=== PATIENT | female | born 1940 | race Caucasian/White ===

== ENCOUNTER 2016-11-21 07:10 | Day surgery (SDC) | payer OTHER, MEDICARE ==
[~2016-11-21] VITALS: Ht 170.2 cm; Wt 86.0 kg
[~2016-11-21 07:10] MED LIST: 0.9% Sodium Chloride 1,000 ML IV SCH; MELO-259 PO; Sodium Chloride LOK Flush 10 mL Syringe IV PRN; VERA240C PO; fentaNYL-PF 50 mCg/mL 2 mL Inj IVPUSH PRN
[2016-11-21 07:31] VITALS: BP 146/89; PULSE 83; RESP 14; O2SAT 96
[2016-11-21 08:21] VITALS: BP 134/76; PULSE 72; RESP 13; O2SAT 93
[2016-11-21 08:31] VITALS: BP 133/70; PULSE 63; O2SAT 93
[2016-11-21 08:41] VITALS: BP 164/89; PULSE 67; RESP 16; O2SAT 97
--- NOTE | 2016-11-21 10:54 | ENDO ---
[address] [address] ENDOSCOPY PROCEDURE PATIENT: MYRIAM QUINTERO : 1940 MR#: [id number] ADMIT: 11/21/2016 JOB ID: [id number] DATE: 11/21/2016 PROCEDURE: Colonoscopy. INDICATION: Screening. Patient's ASA classification is 2. Mallampati score is 2. MEDICATIONS: Versed 5 mg and fentanyl 100 mcg. INSTRUMENT USED: PCF-H180AL. PREP QUALITY: Good. PROCEDURE DETAILS: After informed consent was obtained, the patient was brought to the GI suite, where she was placed on oxygen via nasal cannula and monitored with continuous pulse oximeter, telemetry, and blood pressure monitoring. A time-out was performed. Then, she was placed in a left lateral decubitus position and medications were administered for sedation. A digital rectal exam was performed unremarkable. The colonoscope was then inserted into the rectum and advanced under direct visualization to the cecum, which was identified by the presence of the ileocecal valve and appendiceal orifice. Once the cecum was reached colonoscope was withdrawn back to the rectum as the mucosa and lumen were examined. In the rectum, retroflexion was performed. Following retroflexion, remaining air in the rectum was suctioned, and procedure was completed. FINDINGS: 1. In the cecum, there were 3 polyps ranging in size from 3 mm to 5 mm. All polyps removed with a cold snare. 2. In the ascending colon, there was an approximately 4 mm sessile polyp that was removed with a cold snare. 3. In the transverse colon, there was a diminutive polyp that was removed with cold biopsy forceps. IMPRESSION: 1. Three cecal polyps. 2. Ascending colon polyp. 3. Transverse polyp. RECOMMENDATIONS: 1. Fiber rich diet. 2. Repeat colonoscopy in three years. COMPLICATIONS: None. ESTIMATED BLOOD LOSS: Less than 5 mL.
--- NOTE | 2016-11-22 14:55 | PATH ---
SURGICAL PATHOLOGY Attending Physician:Gonsalo Palacios CASE STATUS: Signed Out PATIENT NAME: MYRIAM QUINTERO PID: [id number] : 1940 DATE COLLECTED:11/21/2016 16:28 SPECIMEN: 1: Colon, Polyp 2: Colon, Polyp 3: Colon, Polyp CLINICAL HISTORY: 1. CECAL POLYPS X3 2. ASCENDING COLON POLYP 3. TRANSVERSE COLON POLYP FINAL DIAGNOSIS: 1.CECAL POLYPS: TUBULAR ADENOMA INVOLVING THREE BIOPSY FRAGMENTS. 2.ASCENDING COLON POLYP: TUBULAR ADENOMA. 3.TRANSVERSE COLON POLYP: TUBULAR ADENOMA INVOLVING SINGLE BIOPSY FRAGMENT. ICD10 D12.0 GROSS DESCRIPTION: Received are three formalin-filled containers, each labeled with the patient' s name. 1. Received in formalin, labeled with the patient' s name and "cecal polyps", are four fragments of simon, soft tissue ranging in size from 0.1 x 0.1 x 0.1 cm to 0.2 x 0.1 x 0.1 cm. All fragments are totally submitted in cassette 1A. 2. Received in formalin, labeled with the patient' s name and "ascending polyp", is one fragment of simon, soft tissue measuring 0.2 x 0.2 x 0.2 cm. The fragment is totally submitted in cassette 2A. 3. Received in formalin, labeled with the patient' s name and "transverse polyp", are two fragments of simon, soft tissue ranging in size from 0.1 x 0.1 x 0.1 cm to 0.2 x 0.1 x 0.1 cm. All fragments are totally submitted in cassette 3A. ([id number]) MICRO DESCRIPTION: See diagnosis. ICD-9 CODES: CPT CODES: 1: 69214 2: 10915 3: 92743 Electronically Signed Out Usman Hurtado MD [facility] [address], [place] [address] Technical component performed at [facility], [address], [place], [address]
== END 2016-11-21 23:59 | disposition home or self-care (01) ==
LOC: END 07:10
PROVIDERS: ATTEND Internal Medicine Gastroenterology
DX: Z12.11 Encounter for screening for malignant neoplasm of colon (principal); D12.0 Benign neoplasm of cecum; D12.2 Benign neoplasm of ascending colon; D12.3 Benign neoplasm of transverse colon; I10 Essential (primary) hypertension; E78.5 Hyperlipidemia, unspecified; J45.909 Unspecified asthma, uncomplicated
CPT/HCPCS: 45380; 45385; 99153; G0500; J2250; J3010; J7030